=== PATIENT | female | born 1940 | race Caucasian/White ===

== ENCOUNTER 2021-04-18 21:19 | Inpatient (IN) | payer MEDICARE, BC ==
[~2021-04-18] VITALS: Ht 180.3 cm; Wt 137.5 kg
[2021-04-18] MEDS ORDERED: HCTZ 25MG TAB25 MG PO (21:39)
[2021-04-18] MEDS ORDERED: TOPROL XL 50MG50 MG PO (21:39)
[2021-04-18] MEDS ORDERED: SYNTHROID0.175 MG PO (21:39)
[2021-04-19 01:15] VITALS: BP 106/60; PULSE 51; TEMP 98.2
--- NOTE | 2021-04-19 01:45 | NUR ---
Vancomycin Initial Dosing Pharmacy Note Ordering provider: Roshan Lerma MD 80 YO F Indication/duration: BILATERAL LE CELLULITIS Trough goal: 10-20 HX: NONE IDENTIFIED BMI: 41.8 WT: 136 KG ADJBW: 97 KG OSH SCR: 0.85 ADJBW ESTCRCL ~ 78 ML/MIN T 1/2 ~ 10H OSH LABS TEMP: 97.4 WBC: 7.3 LA: 2.64 CRP: 1.4 OSH IMAGING XRAY OF LE REPORTING W/OUT OSSEUS INJURY PER RN PT HAD RECEIVED A OSH LOADING DOSE OF 2.5 GM X1 (~18 MG/KG) ON 04/18 @~1999. WILL START A MAINTENANCE DOSE OF 1.25 GM Q12H TO ACEIVE DESIRED GOAL TROUGH. WILL FOLLOW CLOSELY PT IS AT RISK FOR ACCUMULATION AND NOT FOLLOWING POPULATION BASED KINETICS 2/2 ELVEATED BMI. WILL FOLLOW RENAL FUNCTION, MICRO, AND PLAN OF CARE FOR NEED TO ADJUST THERAPY. THANK YOU FOR THIS DOSING CONSULT!
[2021-04-19 02:17] LABS: ALBUMIN 3.1 gm/dL (3.5-5.0); BILIRUBIN,TOTAL 2.9 mg/dL (0.0-1.0); CALCIUM 8.8 mg/dL (8.4-10.2); CREATININE, serum 0.74 (0.52-1.25); MAGNESIUM 1.8 mg/dL (1.6-2.3); POTASSIUM 3.6 mmol/L (3.4-5.0); TOTAL PROTEIN 6.4 gm/dL (6.4-8.2)
[2021-04-19 02:29] LABS: BASO # 0.1 (0.0-0.2); BASO % 0.8 % (0.0-2.0); EOS # 0.1 (0.0-0.7); EOS % 1.1 % (0-4.0); GRAN # 4.4 (1.4-6.5); GRAN % 69.7 % (42.2-75.2); LYMPH # 0.8 (1.2-3.4); LYMPH % 13.5 % (20.0-51.0); MEAN CELL VOLUME 100 fl (80.0-100.0); MEAN CORPUSCULAR HEMOGLOBIN 33 pg (27.0-31.0); MEAN CORPUSCULAR HGB CONC 33 g/dl (33.0-37.0); MEAN PLATELET VOLUME 11.2 fl (7.4-10.4); MONO # 0.9 (0.1-0.6); MONO % 14.6 % (1.7-9.3); PLATELET COUNT 138 K/mm3 (130-400); RED BLOOD COUNT 3.99 M/mm3 (4.10-5.30)
[2021-04-19 03:26] VITALS: BP 101/61; PULSE 97; TEMP 98.5
--- NOTE | 2021-04-19 03:33 | NUR ---
Patient arrived to medical floor room 358 via EMS from [facility] ER around 00:30 am. Patient A/Ox3. Patient's bilateral lower extremities has +4 pitting edemas. Able to confirm pedal pulses with doppler ultrasound. Anterior side of left lower leg has an open wound. Bilateral lower legs oozing. Under breast and pannus area have excoriations. Lung sounds coarse. Patient denies chest pain or SOB. IV magnesium given per NOV. Black catheter inserted for accurate I&O. Patient tolerated procedure well. Lasix given per NOV. Oriented patient to the room. Call light within reach. Bed-alarms on. Fall precaution maintained.
[2021-04-19 04:02] LABS: MUCOUS Present /lpf; PH 5 (5-8); URINE APPEARANCE Hazy; URINE BACTERIA None Seen /hpf; URINE BILIRUBIN Positive (NEGATIVE); URINE BLOOD 2+ (NEGATIVE); URINE COLOR Amber; URINE GLUCOSE Negative (NEGATIVE); URINE KETONE Negative (NEGATIVE); URINE LEUKOCYTE ESTERASE Negative (NEGATIVE); URINE NITRATE Negative (NEGATIVE); URINE PROTEIN(semi-quant) 2+ (NEGATIVE); URINE RBC >50 /hpf; URINE UROBILINOGEN >=4.0 mg/dL (NEGATIVE)
[2021-04-19 04:34] LABS: COLLECTION METHOD CLEAN CATCH
[2021-04-19 08:22] VITALS: BP 107/53; PULSE 74; TEMP 98.1
[2021-04-19 11:03] LABS: CALCIUM 8.7 mg/dL (8.4-10.2); CREATININE, serum 0.8 (0.52-1.25); POTASSIUM 3.6 mmol/L (3.4-5.0)
[2021-04-19 12:17] VITALS: BP 94/64; PULSE 79; TEMP 98.3
--- NOTE | 2021-04-19 14:32 | NUR ---
SW met with patient to complete intake. Patient states that she lives alone. Daughter is near by and assists Mirella. Patient provides that she utilizes a walker and a WC, and is independent with ADL's. Patient states that her PCP is Dr. Ledbetter, pharmacy is [facility]. Patient was unsure of a DPOA, and states that she plans to go back to her home upon DC. SW will continue to follow. DC Plan: Home/alone
[2021-04-19 17:10] VITALS: BP 96/61; PULSE 73; TEMP 97.8
--- NOTE | 2021-04-19 17:52 | NUR ---
PT HAD UNEVETFUL DAY,PT REMAINS A/OX4, SOFT BP'S RECORDED. PT BILAT LEG DRESSINGS CHANGED THIS SHIFT. PT DENIES PAIN,N,V,D. PT EXPRESSES NO ADDITIONAL NEEDS AT THIS TIME. CALL LIGHT WITHIN REACH.
[2021-04-19 19:43] VITALS: BP 125/56; PULSE 87; TEMP 98.4
--- NOTE | 2021-04-19 23:14 | NUR ---
Shift assessment completed. Patient alert and oriented. Patient sitting up in bed. Patient denies pain to her lower legs while at rest. Denies SOB or dyspnea at this time. BLE cellulitis site compression dressing in place. Bilateral lower legs remains elevated on the pillow. Black catheter in place and draining leandra hazy urine with some sediments observed. All scheduled meds given per NOV. Call light within reach. Will continue to monitor.
[2021-04-20 00:22] VITALS: BP 113/57; PULSE 92; TEMP 98.1
[2021-04-20 04:05] VITALS: BP 110/56; PULSE 88; TEMP 97.2
--- NOTE | 2021-04-20 05:26 | NUR ---
Patient reports catheter leaking around midnight. Bladder irrigation done total care provided. Assisted patient to use bed-side commode. Patient had BM x1. Patient very weak, 2 person assit needed for transfer to bed-side commode.
[2021-04-20 07:40] LABS: BASO # 0.1 (0.0-0.2); BASO % 0.8 % (0.0-2.0); EOS # 0.2 (0.0-0.7); EOS % 2.4 % (0-4.0); GRAN # 4.9 (1.4-6.5); GRAN % 68.6 % (42.2-75.2); HEMATOCRIT 37.2 % (37.0-47.0); HEMOGLOBIN 12.2 g/dl (12.5-16.0); LYMPH # 0.9 (1.2-3.4); LYMPH % 12.7 % (20.0-51.0); MEAN CELL VOLUME 100 fl (80.0-100.0); MEAN CORPUSCULAR HEMOGLOBIN 33 pg (27.0-31.0); MEAN CORPUSCULAR HGB CONC 33 g/dl (33.0-37.0); MEAN PLATELET VOLUME 11.4 fl (7.4-10.4); MONO # 1.1 (0.1-0.6); MONO % 15.1 % (1.7-9.3); PLATELET COUNT 138 K/mm3 (130-400); RED BLOOD COUNT 3.73 M/mm3 (4.10-5.30); REDCELL DISTRIBUTION WIDTH-CV 17.2 % (11.5-14.5)
[2021-04-20 07:50] LABS: CALCIUM 8.9 mg/dL (8.4-10.2); CREATININE, serum 0.91 (0.52-1.25); POTASSIUM 3.8 mmol/L (3.4-5.0)
[2021-04-20 08:45] VITALS: BP 108/68; PULSE 100
--- NOTE | 2021-04-20 09:01 | NUR ---
Shift assessment complete. Pt lying in bed sleeping upon entry, rouses easily to voice. A&Ox4. Heart rhythm irregular and tachy in 110s. Lungs w/coarse crackles over all brady. Pt reports SOA w/deep breaths and movement. Denies chest pain or dizziness. BLE w/3-4+ edema and redness. Areas of weeping to bilateral shins. Black in place, no leaking this morning. Urine output minimal, leandra and contains sediment. Pt denies needs at this time. Continuing to monitor.
--- NOTE | 2021-04-20 10:12 | NUR ---
Attempted to collect UA off Black, unable to collect any urine at this time. Will try again later.
[2021-04-20 11:25] VITALS: BP 93/62; PULSE 97; TEMP 97.5
--- NOTE | 2021-04-20 12:06 | NUR ---
No urine after over an hour of Black being clamped. Hospitalist notified and verbal orders given to irrigate Black and bladder scan if unsuccessful. Irrigated Black w/20 ccs sterile water. Winn urine w/small clots began flowing. Approximately 100 ccs urine output at this time. UA collected and sent to lab.
[2021-04-20 12:33] LABS: MUCOUS Present /lpf; PH 5 (5-8); SQUAMOUS EPITHELIAL 0-2 /hpf; URINE APPEARANCE Hazy; URINE BACTERIA Rare /hpf; URINE BILIRUBIN Negative (NEGATIVE); URINE BLOOD 3+ (NEGATIVE); URINE COLOR Yellow; URINE GLUCOSE Negative (NEGATIVE); URINE KETONE Negative (NEGATIVE); URINE LEUKOCYTE ESTERASE 1+ (NEGATIVE); URINE NITRATE Negative (NEGATIVE); URINE PROTEIN(semi-quant) 1+ (NEGATIVE); URINE RBC >50 /hpf; URINE UROBILINOGEN Negative (NEGATIVE)
[2021-04-20 13:13] LABS: COLLECTION METHOD CLEAN CATCH
--- NOTE | 2021-04-20 15:27 | NUR ---
Wraps to bilateral legs soaked from weeping sores. Legs redressed w/ABDs, gauze fluff roll, and TESFAYE wrap. Elevated on a pillow. Black catheter continues to have minimal red hazy output.
[2021-04-20 16:00] VITALS: BP 109/61; PULSE 91; TEMP 97.9
--- NOTE | 2021-04-20 17:22 | NUR ---
Pt has slept for much of shift. Did get up to recliner for a few hours this morning w/help from PT. Resting in bed at this time w/o complaint. 275 ccs hazy red urine output from Black this shift.
[2021-04-20 20:22] VITALS: BP 90/61; PULSE 91; TEMP 98.1
--- NOTE | 2021-04-20 22:50 | NUR ---
ALERT AND OX3. SETTING IN BED WATCHING TV. DENIES PAIN, SOA OR DIZZY. CELLULITIS FROM HIPS TO ANKLES, REDENED AND WEAPING. SHAYNA PAD AND COVERED WITH ABD AND GAUZE ELEVATED ON PILLOW. RANGEL CATH DD YELLOW W SOME HEMATURIA IN BAG. CHRONIC AFIB- DENIES CHEST PAIN OR PALPATIONS. CALL LIGHT WI REACH. PM MEDS GIVEN.
[2021-04-21] VITALS (7 sets, daily range): BP systolic 101–135; BP diastolic 51–87; PULSE 60–101; TEMP 97.4–98.3
--- NOTE | 2021-04-21 05:45 | NUR ---
RESTED THOUGH THE NIGHT WITHOUT INCIDENT. NEEDS MET. URINE OUTPT BORDERLINE LOW AND BLOODY.
--- NOTE | 2021-04-21 06:34 | NUR ---
PT RUNNING AFIB W RVR, CALLED BY TELE THOUGHT VU TO BE VTACH- PT SETTING UP IN BED SAYING SHE MAY HAVE TO GO TO THE BATHROOM. REMINDED HAD CLAIRE IN. CALLED SUPER[employer] BACK AFTER LOOKING AT STRIP APPEARS TO BE AFIB RVR. NOTED AND MONITORING.
[2021-04-21 07:04] LABS: BASO % 0.6 % (0.0-2.0); EOS # 0.2 (0.0-0.7); EOS % 2.8 % (0-4.0); GRAN # 4.4 (1.4-6.5); GRAN % 65.6 % (42.2-75.2); HEMATOCRIT 39.1 % (37.0-47.0); HEMOGLOBIN 12.9 g/dl (12.5-16.0); LYMPH # 1.2 (1.2-3.4); MEAN CELL VOLUME 100 fl (80.0-100.0); MEAN CORPUSCULAR HEMOGLOBIN 33 pg (27.0-31.0); MEAN CORPUSCULAR HGB CONC 33 g/dl (33.0-37.0); MEAN PLATELET VOLUME 11.5 fl (7.4-10.4); MONO # 0.9 (0.1-0.6); MONO % 12.6 % (1.7-9.3); PLATELET COUNT 135 K/mm3 (130-400); REDCELL DISTRIBUTION WIDTH-CV 17.2 % (11.5-14.5)
--- NOTE | 2021-04-21 07:17 | NUR ---
PT LAYING IN BED, STATES THAT SHE NEEDS TO USE THE BEDSIDE COMMODE. SHE IS A TWO ASSIST. NO OTHER CONCERNS.
[2021-04-21 07:18] LABS: CALCIUM 9.1 mg/dL (8.4-10.2); CREATININE, serum 1.05 (0.52-1.25); POTASSIUM 3.9 mmol/L (3.4-5.0)
[2021-04-21 07:25] LABS: INR 1.4 (0.8-3.0); PROTHROMBIN TIME 15.3 SECONDS (9.7-12.8)
--- NOTE | 2021-04-21 10:37 | NUR ---
Initial visit; Patient thanked News Cameraman for looking in on her, visiting and offering prayer and God's blessings.
--- NOTE | 2021-04-21 15:31 | NUR ---
SW met with the patient to introduce oneself and to review d/c plan. The patient confirms that she lives alone in [place]. She reports that her daughter, Mirella (ph#[phone]), and granddaughter also live in [place]. PT is recommending home with family assist. The patient plans to return home upon discharge. SW discussed home health services and it's benefits. The patient states that she would need to think about this. RIGOBERTO then contacted the patient's daughter, Mirella, to review the above. Mirella reports that she does have concerns about the patient returning home with no services. She states that the patient is a fall risk and will not bathe or do what she needs to at home. Mirella states that she may be looking in [place] in the future for the patient. SW to update the clinical team and will address home health again.
[2021-04-22 04:28] VITALS: BP 94/56; PULSE 91; TEMP 97.5
[2021-04-22 07:52] LABS: HEMOGLOBIN 12.2 g/dl (12.5-16.0); MEAN CELL VOLUME 102 fl (80.0-100.0); MEAN CORPUSCULAR HEMOGLOBIN 33 pg (27.0-31.0); MEAN CORPUSCULAR HGB CONC 32 g/dl (33.0-37.0); MEAN PLATELET VOLUME 11.3 fl (7.4-10.4); PLATELET COUNT 125 K/mm3 (130-400); RED BLOOD COUNT 3.71 M/mm3 (4.10-5.30); REDCELL DISTRIBUTION WIDTH-CV 17.2 % (11.5-14.5)
[2021-04-22 08:00] LABS: CALCIUM 8.8 mg/dL (8.4-10.2); CREATININE, serum 1.14 (0.52-1.25); MAGNESIUM 1.8 mg/dL (1.6-2.3); POTASSIUM 3.6 mmol/L (3.4-5.0)
[2021-04-22 08:17] VITALS: BP 98/60; PULSE 80; TEMP 98
--- NOTE | 2021-04-22 09:38 | NUR ---
Follow-up visit; Patient thanked Dorr Operator for looking in on her and offering a cheerful "Hello, and God's blessings."
[2021-04-22 11:36] VITALS: BP 100/58; PULSE 85; TEMP 97.7
--- NOTE | 2021-04-22 14:48 | NUR ---
OT notified RIGOBERTO of some concerns about the patient returning home. SW met with the patient to review d/c plan and discussed SNF. The patient reports that she would be interested in SNF and would probably be interested in the facility she had been to in the past. SW contacted the patient's daughter, Mirella, and updated her on the above. Mirella is supportive of the patient's decision. She reports that the patient was at [facility] in [place] in the past and they would prefer them again. She did not have a second preference at this time. Mirella reports that if [facility] is unable to trasport, that she would be able to transport the patient. SW attempted to contact [facility]. The call rolled over to one of their sister facilities. The hospital receptionist reports that [facility]'s phones are down right now. She states she will get in touch with someone at [facility] and have them contact . The hospital receptionist did not have [facility]'s fax number. Awaiting call from [facility] to be able to send referral. RIGOBERTO updated the PA of the plan.
--- NOTE | 2021-04-22 15:17 | NUR ---
Floresita, from [facility], returned RIGOBERTO's phone call. She states that their phones are down, but that RIGOBERTO can email her the referral: [email or web address]. RIGOBERTO emailed Floresita the referral. Awaiting screen. Floresita: [phone]
[2021-04-22 15:39] VITALS: BP 95/54; PULSE 78; TEMP 97.7
--- NOTE | 2021-04-22 16:00 | NUR ---
A palliative care consult was ordered. Benita met with the patient. Benita reports that the patient is not interested in hospice. The patient was interested in completing a DPOA-HC. RIGOBERTO met with the patient and provided her with a form. The patient designated her aunt, Marianna Baig (ph#[phone]), and her brother, Narinder Britt (ph#[phone]), as the alternate. RIGOBERTO and SAL Joy, witnessed the patient's signature. RIGOBERTO provided the patient with the original and some copies. RIGOBERTO placed a copy in the patient's chart.
[2021-04-22 19:43] VITALS: BP 93/53; PULSE 85; TEMP 97.3
--- NOTE | 2021-04-22 21:46 | NUR ---
ALERT AND OX3. SLEEPING UPON ENTERING ROOM. BILATERAL LEGS WRAPPED APPEAR TO BE LESS WEAPY TODAY. PITTING EDEMA REMAINS 4+. LASIX AND ANTIBOTICS GIVEN PER MAR. DENIES PAIN, SOA. LUNGS SLIGHT CRACKLES. POC DISCUSSED. LIGHT DOWN CALL LIGHT WI REACH. NEEDS MET.
[2021-04-22 23:57] VITALS: BP 99/60; PULSE 89; TEMP 97.5
[2021-04-23 04:44] VITALS: BP 90/45; PULSE 93; TEMP 97.5
--- NOTE | 2021-04-23 04:58 | NUR ---
RESTED THROUGH THE NIGHT WITHOUT INCIDENT. NEEDS MET.
[2021-04-23 06:50] LABS: HEMATOCRIT 37.3 % (37.0-47.0); MEAN CELL VOLUME 101 fl (80.0-100.0); MEAN CORPUSCULAR HEMOGLOBIN 33 pg (27.0-31.0); MEAN CORPUSCULAR HGB CONC 32 g/dl (33.0-37.0); MEAN PLATELET VOLUME 11.3 fl (7.4-10.4); PLATELET COUNT 126 K/mm3 (130-400); RED BLOOD COUNT 3.69 M/mm3 (4.10-5.30); REDCELL DISTRIBUTION WIDTH-CV 17.1 % (11.5-14.5)
[2021-04-23 06:58] LABS: CALCIUM 8.7 mg/dL (8.4-10.2); CREATININE, serum 1.2 (0.52-1.25); POTASSIUM 3.8 mmol/L (3.4-5.0)
[2021-04-23 07:32] VITALS: BP 97/51; PULSE 84; TEMP 97.7
--- NOTE | 2021-04-23 08:19 | NUR ---
Scheduled medications given. Shift assessment preformed. Lasix and Toprol held for SBP<100. BLE cellulitis with weeping noted. Patient continues to be in A-flutter. Expiratory wheezes noted in all lung field. Patient denies any pain, discomfort, SOA at rest, or further needs at this time. Balck in place. Yellow urine with sediment noted. Call light in reach. Fall precautions in place.
--- NOTE | 2021-04-23 10:16 | NUR ---
Honey, at [facility], reports that they have declined the patient. They do not feel like they can meet the patient's needs. RIGOBERTO contacted and updated the patient's daughter, Mirella. RIGOBERTO discussed SNF vs home health. Mirella reports that she feels like the patient needs something more than home health and would still like to pursue SNF. RIGOBERTO informed her of the other facilities around [place]. Mirella would like to talk to her first, but she states that they are familiar with the facilites in [place] and would be open for SW to send referrals there. She plans on contacting SW back this afternoon with other preferences. RIGOBERTO attempted to contact Grisel at [facility]. RIGOBERTO left her a voicemail and faxed over the referral. RIGOBERTO contacted and emailed a referral to at [facility]. Awaiting screens.
[2021-04-23 11:53] VITALS: BP 102/61; PULSE 80; TEMP 97.6
--- NOTE | 2021-04-23 12:46 | NUR ---
Follow-up visit; Patient thanked for her continued visits and well wishes. will continue visits while [place] is a patient here.
[2021-04-23 15:46] VITALS: BP 85/46; PULSE 78; TEMP 97.8
--- NOTE | 2021-04-23 16:48 | NUR ---
Grisel, at [facility], contacted with some additional questions on the patient. Grisel reports that she will reach out to the patient's daughter and be in contact with . Grisel at [facility]: cell #[phone] work#[phone] ext [phone]
--- NOTE | 2021-04-23 19:16 | NUR ---
Patient had an ok day. BP's continue to be soft. Provider notified, rudolph put on a future hold. Patient had 400 ml of output from her de la cruz. Urine tea colored, sediment noted. Bladder scan conducted and 248 ml of residual urine noted. No kinks noted in de la cruz. Patient denies the presence of pain or discomfort. Information passed to oncoming shift. Patient denies any further pain at this time. Call light in reach. Fall precautions in place.
[2021-04-23 20:37] VITALS: BP 100/58; PULSE 85; TEMP 97.5
[2021-04-24 00:05] VITALS: BP 93/57; PULSE 82; TEMP 97.5
--- NOTE | 2021-04-24 04:53 | NUR ---
PT HAD UNEVENTFUL NIGHT, THIS NURSE CHANGED THE PT'S DRESSING AND HELPED CLEAN UP THE PT. PT DENIES PAIN,N,V,D. PT EXPRESSES NO ADDITIONAL NEEDS AT THIS TIME. CALL WITHIN REACH.
[2021-04-24 05:00] VITALS: BP 100/63; PULSE 85; TEMP 97.5
[2021-04-24 07:27] VITALS: BP 110/59; PULSE 89; TEMP 97.6
--- NOTE | 2021-04-24 08:08 | NUR ---
Scheduled medication given. Shift assessment preformed. Patient resting in bed at this time. Patient A&O. VSS. Expiratory wheezes noted in all brady. Patient denies being SOA. BLE cellulitis and +3 edema noted. Black catheter in place. Securment device in use. Urine tea colored with sediment. Patient denies any pain, discomfort, or further needs at this time. Call light in reach. Fall precautions in place.
[2021-04-24 11:31] VITALS: BP 97/54; PULSE 85; TEMP 97.8
[2021-04-24 11:46] LABS: CALCIUM 8.9 mg/dL (8.4-10.2); CREATININE, serum 1.16 (0.52-1.25)
--- NOTE | 2021-04-24 14:50 | NUR ---
Grisel with [facility] states they can accept patient, however, daughter will need to transport.
[2021-04-24 16:00] VITALS: BP 100/62; PULSE 89; TEMP 97.5
--- NOTE | 2021-04-24 19:26 | NUR ---
Patient had an uneventful day. Urine output continues to be low. Bladder scanned, 238 ml residual noted. Fluids encouraged. Urine tea colored with sedement. VSS. Patient denies any pain, discomfort, or further needs at this time. Call light in reach. A&O.
[2021-04-24 21:04] VITALS: BP 96/55; PULSE 87; TEMP 97.5
[2021-04-25 00:30] VITALS: BP 100/50; PULSE 85; TEMP 97.8
[2021-04-25 04:09] VITALS: BP 95/58; PULSE 75; TEMP 97.4
--- NOTE | 2021-04-25 04:14 | NUR ---
PT READJUSTED IN BED, SPO2 SATURATION MONITORED, 92%. TRANSIENT DESATURATIONS NOTED TO 89%, QUICKLY JUMP BACK UP TO 92-93%. WILL CONTINUE TO MONITOR.
--- NOTE | 2021-04-25 04:16 | NUR ---
PT READJUSTED, STAGE TWO PRESSURE ULCER FOUND ON COCCYX, CLEANED AND DRESSED WITH MEPELEX PAD. PT EXCORIATION ON GROIN AND UNDER LEFT BREAST CLEANED, DEMEDEX POWDER APPLIED AT THIS TIME.
--- NOTE | 2021-04-25 06:06 | NUR ---
PT CONTINUING ON PLAN OF CARE. PT DENIED PAIN DURING SHIFT. PT EXCORIATION MANAGED WITH DEMEDEX, CLEANED AND DRIED. PT ABLE TO CONVERSE FREELY AND EXPRESS NEEDS. THIS RN FOUND STAGE 2 PRESSURE ULCER OVER COCCYX. AREA CLEANED, DRIED, WITH MEPELEX PAD PLACED TO RELIEVE PRESSURE.
--- NOTE | 2021-04-25 07:03 | NUR ---
PATIENT LYING IN BED AWAKE AT THIS TIME. DENIES ANY PAIN, DISCOMFORT, OR FURTHER NEEDS AT THIS TIME. CALL LIGHT IN REACH. FALL PRECAUTIONS IN PLACE.
[2021-04-25 07:09] LABS: BASO # 0.1 (0.0-0.2); EOS # 0.2 (0.0-0.7); EOS % 3.8 % (0-4.0); GRAN # 3.8 (1.4-6.5); GRAN % 63.3 % (42.2-75.2); HEMATOCRIT 37.7 % (37.0-47.0); HEMOGLOBIN 12.2 g/dl (12.5-16.0); LYMPH # 1.1 (1.2-3.4); LYMPH % 17.5 % (20.0-51.0); MEAN CELL VOLUME 101 fl (80.0-100.0); MEAN CORPUSCULAR HEMOGLOBIN 33 pg (27.0-31.0); MEAN CORPUSCULAR HGB CONC 32 g/dl (33.0-37.0); MEAN PLATELET VOLUME 11.5 fl (7.4-10.4); MONO # 0.8 (0.1-0.6); MONO % 13.9 % (1.7-9.3); PLATELET COUNT 115 K/mm3 (130-400); RED BLOOD COUNT 3.74 M/mm3 (4.10-5.30); REDCELL DISTRIBUTION WIDTH-CV 17.4 % (11.5-14.5)
[2021-04-25 07:16] LABS: CALCIUM 8.7 mg/dL (8.4-10.2); CREATININE, serum 1.2 (0.52-1.25); POTASSIUM 3.8 mmol/L (3.4-5.0)
[2021-04-25 07:49] VITALS: BP 115/60; PULSE 89; TEMP 97.5
--- NOTE | 2021-04-25 09:03 | NUR ---
SCHEDULED MEDICATIONS GIVEN. SHIFT ASSESSMENT PREFORMED. PATIENT A&O. VSS. PATIENT HAS DEVELOPED A STAGE 2 ULCER ON SACRAL REGION. Q2 TURNING SCHEDULE IN PLACE. BLE CELLULITIS NOTED. REDNESS IN GROIN AND UNDER RIGHT BREAST. DESENEX ORDERED. EXP. WHEEZES NOTED IN ALL LUNG PLATT. PATIENT DENIES ANY PAIN, DISCOMFORT, OR FURTHER NEEDS AT THIS TIME. CALL LIGHT IN REACH. FALL PRECAUTIONS IN PLACE.
--- NOTE | 2021-04-25 09:22 | NUR ---
insulation worker attended clinical rounds. Patient will not discharge today. Patient has been accepted to [facility] for skilled care and daughterMirella, will transport upon discharge. Mirella resides in [place], [place] so an early discharge is preferred. Worker contacted daughter, Mirella and Grisel with skilled facility and advised of the above information. Will evaluate for discharge on Wednesday. *Skilled care at [facility] in [place], [place]* Daughter to transport
[2021-04-25 11:04] VITALS: BP 105/52; PULSE 79; TEMP 97.6
--- NOTE | 2021-04-25 14:54 | NUR ---
PT CAME AND SPOKE WITH THE RN ABOUT CONCERNS OVER PATIENT BEING LETHARGIC THIS SHIFT. THIS RN ASSESSED PATIENT. PATIENT IS EASILY AROUSED AND VOICED THAT SHE "JUST WANTS TO GET SOME REST." PATIENT CONTINUES TO HAVE VERY LOW OUTPUT. BLADDER SCAN DONE, 200 ML OF RESIDUAL URINE NOTED. PATIENT DENIES ANY PAIN, DISCOMFORT, IS AFEBRILE, HAS NO N/V/D. PATIENT REPOSITIONED ON TO LEFT SIDE. CALL LIGHT IN REACH. FALL PRECAUTIONS IN PLACE.
[2021-04-25 15:20] VITALS: BP 105/61; PULSE 89; TEMP 97.4
--- NOTE | 2021-04-25 15:32 | NUR ---
DR. SPARKS NOTIFIED OF PATIENT'S LOW OUTPUT. WILL MONITIOR OUTPUT AND CONTINUE TO REPORT.
--- NOTE | 2021-04-25 16:51 | NUR ---
PATIENT HAS HAD AN OK DAY. HAS NOT C/O ANY PAIN, DISCOMFORT, OR FURTHER NEEDS AT THIS TIME. VSS. RANGEL CATHETER IN PLACE. SECUREMENT DEVICE IN PLACE, NO KINKS IN TUBING. CALL LIGHT IN REACH. FALL PRECAUTIONS IN PLACE.
--- NOTE | 2021-04-25 22:13 | NUR ---
PATIENT IS RESTING IN BED.DENIES PAIN.PATIENT HAS A RANGEL CATHETER WITH DIMINISHED URINE.STARTED AN IV ACCESS ON THE RF.ASSESSMENT DONE.NO OTHER NEEDS A THIS TIME.
[2021-04-25 23:44] VITALS: BP 100/64; PULSE 83; TEMP 98
[2021-04-26 04:29] VITALS: BP 103/57; PULSE 86; TEMP 97.3
--- NOTE | 2021-04-26 05:45 | NUR ---
PATIENT HAD A GOOD NIGHT.DENIES PAIN.SAFETY MEASURES IN PLACE,PATIENT HAD A URINE OUTPUT AFTER LASIX INJ.NO OTHER NEEDS AT THIS TIME.
--- NOTE | 2021-04-26 07:00 | NUR ---
Report received from SAL Cota. Pt in bed resting, will continue to monitor.
--- NOTE | 2021-04-26 09:00 | NUR ---
Assessment charted. PT doing well, BLE Cellulitis with draiange, edema is allfrom feet to ABD at aleast a +3 edema. INT to LFA. Denies pain. Sacral stage 2 covered with mepilex. de la cruz drainig leandra sedimenty urine to DD in bag at side of bed. Will continue to montior.
[2021-04-26 09:19] VITALS: BP 106/55; PULSE 90; TEMP 97.5
[2021-04-26 10:05] LABS: HEMOGLOBIN 12.4 g/dl (12.5-16.0); MEAN CELL VOLUME 100 fl (80.0-100.0); MEAN CORPUSCULAR HEMOGLOBIN 33 pg (27.0-31.0); MEAN CORPUSCULAR HGB CONC 33 g/dl (33.0-37.0); MEAN PLATELET VOLUME 11.4 fl (7.4-10.4); PLATELET COUNT 116 K/mm3 (130-400); RED BLOOD COUNT 3.79 M/mm3 (4.10-5.30); REDCELL DISTRIBUTION WIDTH-CV 17.4 % (11.5-14.5)
[2021-04-26 10:13] LABS: CALCIUM 8.9 mg/dL (8.4-10.2); CREATININE, serum 1.13 (0.52-1.25); MAGNESIUM 1.8 mg/dL (1.6-2.3); POTASSIUM 4.1 mmol/L (3.4-5.0)
[2021-04-26 12:00] VITALS: BP 102/58; PULSE 85; TEMP 97.7
[2021-04-26 15:50] VITALS: BP 105/57; PULSE 87; TEMP 97.5
--- NOTE | 2021-04-26 19:06 | NUR ---
Pt has done well over shift. REsting in bed, turned q2hr over shift. Pt denies needs, report given to nightshift nurse who will resume care.
[2021-04-26 20:20] VITALS: BP 110/59; PULSE 59; TEMP 98.5
--- NOTE | 2021-04-26 20:57 | NUR ---
Assessment completed, alert and oriented. VS are stable including her BP which is always in the soft side. Denies pain os SOB. She sounds wheezy all over which is pretty much her baseline. She is at room air. She is swollen from her belly down to her foot. Bilateral lower legs is elevated in pillows both are wrapped with brian and chucks under. patient skin is dry and scaly in lower legs and weeping. Upper arms are dry as well. Black catheter is in placed and not draining that much despite the lasix that she is geting. No further complains noted. Bed alarm is on and call light is within reach. Will continue to follow.
[2021-04-26 23:47] VITALS: BP 104/57; PULSE 63; TEMP 97.8
[2021-04-27 03:58] VITALS: BP 109/52; PULSE 66; TEMP 98.3
--- NOTE | 2021-04-27 07:00 | NUR ---
Report received from SAL Jaimes. Pt in bed resting, denies needs, will continue to monitor.
[2021-04-27 08:56] LABS: CALCIUM 8.6 mg/dL (8.4-10.2); CREATININE, serum 1.31 (0.52-1.25); POTASSIUM 3.8 mmol/L (3.4-5.0)
[2021-04-27 09:02] VITALS: BP 92/54; PULSE 78; TEMP 97.7
--- NOTE | 2021-04-27 10:40 | NUR ---
Assessment charted. PT denies pain, abd legs and feet remain very edemetous. INT to RH. Turning q2hr for comfort. will continue to monitor.
[2021-04-27 11:32] VITALS: BP 100/58; PULSE 72; TEMP 97.8
--- NOTE | 2021-04-27 14:23 | NUR ---
Bed bath provided and catheter care. PT initially resistant, stated she jsut wanted to rest but did consent. Pt able to assist to assist with rolling but did not verbalize that she is very wet and leaking from her skin around her right abd and right thigh. Changed linens and gown, pt extremely winded from simple act of rolling in bed and did have labored breathing for some time. Called LARRY Miranda with hospitalist group and notified of pt status, she will place orders. Will continue to monitor.
[2021-04-27 16:37] VITALS: BP 95/59; PULSE 87; TEMP 97.4
--- NOTE | 2021-04-27 18:32 | NUR ---
Pt has done well over shift but htis evening was requiring 2LNC to maintain 02 saturations. Called hopsitalist and orders received, called critical d.dimer. Will give bedside shift report to nightshift nruse who will resume care.
[2021-04-27 20:27] VITALS: BP 90/51; PULSE 80; TEMP 98
--- NOTE | 2021-04-27 22:32 | NUR ---
Patient went down for CT of the chest at the start of the shift. She is alert and oriented.Patient used 2L now which is new for her. She still have generalized edema, bilateral legs is wrapped and weeping. She denies pain or SOB and she doesn't call or complain of anything. Black is in placed. VS are stable except for the BP which is low. Tele is in placed where she runs irregular.New IV site inserted from dayshift RN in right hand saline locked. Continue repositioning Q2hrs fro patient comfort. Bedalarm is on and call light within reach will continue to follow.
[2021-04-27 23:36] VITALS: BP 91/60; PULSE 75; TEMP 97.7
[2021-04-28] VITALS (334 sets, daily range): BP systolic 93–112; BP diastolic 49–74; PULSE 63–87; TEMP 97–98.1; O2SAT 88–100
--- NOTE | 2021-04-28 07:00 | NUR ---
Report received form SAL Jaimes. Pt in bed resting, denies needs, will continue to monitor.
[2021-04-28 08:11] LABS: BASO # 0.1 (0.0-0.2); EOS # 0.2 (0.0-0.7); GRAN # 3.7 (1.4-6.5); GRAN % 63.3 % (42.2-75.2); HEMATOCRIT 38.2 % (37.0-47.0); MEAN CELL VOLUME 104 fl (80.0-100.0); MEAN CORPUSCULAR HEMOGLOBIN 33 pg (27.0-31.0); MEAN CORPUSCULAR HGB CONC 31 g/dl (33.0-37.0); MEAN PLATELET VOLUME 11.7 fl (7.4-10.4); MONO # 0.8 (0.1-0.6); MONO % 14.4 % (1.7-9.3); PLATELET COUNT 113 K/mm3 (130-400); RED BLOOD COUNT 3.67 M/mm3 (4.10-5.30); REDCELL DISTRIBUTION WIDTH-CV 17.6 % (11.5-14.5)
[2021-04-28 08:20] LABS: CALCIUM 8.5 mg/dL (8.4-10.2); CREATININE, serum 1.34 (0.52-1.25); POTASSIUM 3.9 mmol/L (3.4-5.0)
--- NOTE | 2021-04-28 08:21 | NUR ---
Assessment charted. Pt doing well, states she thinks she is doing better today, sitting up and eating breakfast. Denies pain. 02 sats only 91% on 3.5L NC. Pt continues to have edema all over body. Weeping skin especially R thigh and ABD. INT to LH. Will continue ot monitor.
--- NOTE | 2021-04-28 10:21 | NUR ---
Follow-up visit; Patient thanked Engineer Technical Staff for looking in on her again today and listening, offering comfort and keeping her in Engineer Technical Staff's prayers with blessings.
--- NOTE | 2021-04-28 10:35 | NUR ---
Patient will be transferring to ICU and will not discharge to long term facility in [place] today.
--- NOTE | 2021-04-28 13:23 | NUR ---
Pt transported down via w/c to ICU with medical staff. Per pt there is no one to notify of transfer. Resting in wheelchair and transferred to bed with SBA. ICU nurse Ginny given report, she will resume care.
--- NOTE | 2021-04-28 13:50 | NUR ---
RECEIVED BEDSIDE SHIFT REPORT FROM SAL ACEVEDO REGARDING THIS PATIENT AT 1230. PATIENT RECEIVED FROM MEDICAL FLOOR WITH LEFT HAND IV AND RANGEL CATHETER IN PLACE, SALINE LOCKED. PATIENT VERY HARD OF HEARING BUT PLEASANT AND RESPONSIVE TO ASSESSMENT QUESTIONS. WEEPING FROM LEFT UPPER EXTREMITY AND BILATERAL LOWER EXTREMITIES. BLE WRAPPED WITH TESFAYE BANDAGES AND 4+ EDEMA. BUE 3+ AND ABDOMEN 2+ EDEMA. PLACED CHUCKS PAD UNDER LUE. WILL START LASIX GTT AND MONITOR PRESSURES. VITAL SIGNS STABLE AT THIS TIME.
--- NOTE | 2021-04-28 14:23 | NUR ---
Called and update provided to daughter Mirella regarding transfer to ICU.
--- NOTE | 2021-04-28 14:33 | NUR ---
qualified craft worker electrician notified Grisel of [facility] in [place] that patient was transferred to ICU and will not discharge this date. Patient's nurse contacted daughter, Mirella, and advised of the above information. [facility]
--- NOTE | 2021-04-28 14:33 | NUR ---
NOTIFIED DR. HERNANDEZ AND DR. REDMOND OF [facility]. RECOMMENDATION TO PLACE HEPARIN AND ASPIRIN ON HOLD.
--- NOTE | 2021-04-28 14:52 | NUR ---
PLACED ORDER FOR PICC LINE PLACEMENT WITH DR. HERNANDEZ'S PERMISSION.
[2021-04-28] MEDS ORDERED: ASPIRIN 81M81 MG/TA2 PO (18:32)
--- NOTE | 2021-04-28 20:07 | NUR ---
Assessment complete and charted. Denies pain. Denies needs at this time. Call light in reach.
[2021-04-29] VITALS (1149 sets, daily range): BP systolic 92–104; BP diastolic 44–85; PULSE 66–91; TEMP 95.6–97.6; O2SAT 77–100
[2021-04-29 06:26] LABS: BASO # 0.1 (0.0-0.2); EOS # 0.2 (0.0-0.7); EOS % 3.4 % (0-4.0); GRAN # 3.3 (1.4-6.5); HEMATOCRIT 37.9 % (37.0-47.0); LYMPH # 0.9 (1.2-3.4); LYMPH % 16.9 % (20.0-51.0); MEAN CELL VOLUME 103 fl (80.0-100.0); MEAN CORPUSCULAR HEMOGLOBIN 33 pg (27.0-31.0); MEAN CORPUSCULAR HGB CONC 32 g/dl (33.0-37.0); MEAN PLATELET VOLUME 11.5 fl (7.4-10.4); MONO # 0.7 (0.1-0.6); MONO % 13.3 % (1.7-9.3); PLATELET COUNT 107 K/mm3 (130-400); RED BLOOD COUNT 3.67 M/mm3 (4.10-5.30); REDCELL DISTRIBUTION WIDTH-CV 17.7 % (11.5-14.5)
[2021-04-29 06:33] LABS: ALBUMIN 2.7 gm/dL (3.5-5.0); BILIRUBIN,TOTAL 1.3 mg/dL (0.0-1.0); CALCIUM 8.5 mg/dL (8.4-10.2); CREATININE, serum 1.3 (0.52-1.25); MAGNESIUM 1.9 mg/dL (1.6-2.3); POTASSIUM 3.7 mmol/L (3.4-5.0); TOTAL PROTEIN 5.9 gm/dL (6.4-8.2)
--- NOTE | 2021-04-29 09:29 | NUR ---
Follow-up visit; Patient just received her breakfast, wished [place] a good morning and a better day today. will look in on [place] later.
--- NOTE | 2021-04-29 10:58 | NUR ---
Follow-up with [place]; Front Desk Specialist attempted to talk more with Lenore although she was having a more difficult time hearing this morning. Front Desk Specialist offered God's blessings and left her with a nurse.
[2021-04-29 18:31] LABS: CALCIUM 8.9 mg/dL (8.4-10.2); CREATININE, serum 1.32 (0.52-1.25)
--- NOTE | 2021-04-29 19:42 | NUR ---
REPORTED OFF TO SAL MARTIN; PATIENT RESTING COMFORTABLY IN BED
[2021-04-30] VITALS (928 sets, daily range): BP systolic 85–99; BP diastolic 42–59; PULSE 91–102; TEMP 97.8–98.1; O2SAT 83–100
--- NOTE | 2021-04-30 00:25 | NUR ---
2340 PT WENT INTO AFIB RVR 2X. BP MAINTAINED. LASTED APPROX 30 SECONDS. WILL CONTINUE TO MONITOR. PT ASYMPTOMATIC AT THIS TIME.
[2021-04-30 04:50] LABS: BASO % 0.7 % (0.0-2.0); EOS # 0.1 (0.0-0.7); GRAN # 4.3 (1.4-6.5); GRAN % 75.4 % (42.2-75.2); HEMATOCRIT 37.6 % (37.0-47.0); HEMOGLOBIN 11.8 g/dl (12.5-16.0); LYMPH # 0.6 (1.2-3.4); LYMPH % 9.7 % (20.0-51.0); MEAN CELL VOLUME 106 fl (80.0-100.0); MEAN CORPUSCULAR HEMOGLOBIN 33 pg (27.0-31.0); MEAN CORPUSCULAR HGB CONC 31 g/dl (33.0-37.0); MEAN PLATELET VOLUME 11.6 fl (7.4-10.4); MONO # 0.7 (0.1-0.6); MONO % 12.7 % (1.7-9.3); PLATELET COUNT 101 K/mm3 (130-400); RED BLOOD COUNT 3.55 M/mm3 (4.10-5.30); REDCELL DISTRIBUTION WIDTH-CV 17.7 % (11.5-14.5)
[2021-04-30 04:58] LABS: ALBUMIN 2.8 gm/dL (3.5-5.0); BILIRUBIN,TOTAL 1.4 mg/dL (0.0-1.0); CALCIUM 8.8 mg/dL (8.4-10.2); CREATININE, serum 1.29 (0.52-1.25); MAGNESIUM 1.9 mg/dL (1.6-2.3); POTASSIUM 4.1 mmol/L (3.4-5.0); TOTAL PROTEIN 6.1 gm/dL (6.4-8.2)
--- NOTE | 2021-04-30 07:00 | NUR ---
RECEIVED REPORT FROM SAL MARTIN. PT RESTING EASILY ON 1L VIA NC. FC PATENT AND DRAINING TO GRAVITY. RAD TINGED NOTED. WILL MONITOR. VSS. SEE GTT FLOWSHEET. CALL LIGHT WITHIN REACH.
--- NOTE | 2021-04-30 09:00 | NUR ---
DR REDMOND AT BEDSIDE FOR ASSESSMENT. DISCUSSED LOW UO AND URINE COLOR IS RED. PROVIDER STAES CREATINE HAS NOT CHANGED MUCH TO STILL TRY GETTING FLUID OFF, SEE GTT FLOWSHEET FOR LASIX CHANGE. PROVIDER STATES WILL REASSESS TOMORROW MORNING ABOUT POTENTIALLY INCREASING LASIX DOSE AGAIN.
--- NOTE | 2021-04-30 10:00 | NUR ---
SPOKE TO DR REDMOND ABOUT IF PT SHOULD RECEIVE METOPROLO THIS AM D/T SBP IN THE 90-100s. STATES YES FOR AFIB. MADE PROVIDER AWARE PT SPIT OUT THE OTHER PILLS AND WILL TRY AGAIN LATER. PT DOES NOT OPEN EYES BUT ONE TIME WHEN NAMED CALLED AND STATES "IM TIRED," AND CLOSES EYES AND GOES BACK TO SLEEP.
--- NOTE | 2021-04-30 10:15 | NUR ---
SPOKE TO DR BRAY ABOUT PT SPITTING PILLS BACK OUT AND REFUSING OTHER ITEMS OF CARE LAST NIGHT. PT APPEARS TO BE UNINTERESTED IN CARE OR TREATMENT. POTENTIAL NEED FOR GOALS OF CARE WITH FAMILY AND PT D/T LACK OF INTEREST BY PT. NEW ORDERS RECEIVED.
--- NOTE | 2021-04-30 10:53 | NUR ---
PT TURNS HEAD WHEN SPOKEN TO BUT DOES NOT OPEN EYES. WHEN ASKED IF SHE WANTS WATER SHE OPENS HER MOUTH AND USES STRAW APPORPRAITELY. THEN ASKED PT IF SHE CAN TAKE HER PILLS, SHE SHAKES HER HEAD NO AND DOES NOT OPEN HER MOUTH.
--- NOTE | 2021-04-30 13:30 | NUR ---
SPOKE TO DR BRAY ABOUT HER CONVERSATION WITH DR REDMOND AND PT'S DAUGHTER DANNY ABOUT POC AND UPDATES ON PT. PROVIDER STATES DID DISCUSS DECLINE OF PT AND WHAT THE DAUGHTER'S WISHES WERE MOVING FORWARD ON HOW AGGRESSIVE SHE WANTS TO BE BECAUSE PT MAY NEED TRANSFERRED TO A HEART FAILURE FACITLITY. PROVIDER AWARE OF UO ONLY 70ML SINCE SHIFT CHANGE. PTOVIDER REQUESTS THAT DR HELTON BE NOTIFIED AND BMP. PROVIDER STATES PT'S DAUGHTER UNABLE TO COME TILL TOMORROW EVENING AFTER WORK AND THAT WE WILL KEEP GOING FORWARD IS LONG PT IS STABLE. AWAITING NEPHROLOGY FURTHER INSTRUCTIONS AFTER CONSULT CALLED TO DR HELTON.
[2021-04-30 13:40] LABS: AMORPHOUS CRYSTAL Present /uL; PH 5 (5-8); SQUAMOUS EPITHELIAL None Seen /hpf; URINE APPEARANCE Turbid; URINE BACTERIA Moderate /hpf; URINE BILIRUBIN Negative (NEGATIVE); URINE BLOOD 3+ (NEGATIVE); URINE GLUCOSE Negative (NEGATIVE); URINE KETONE Negative (NEGATIVE); URINE LEUKOCYTE ESTERASE Negative (NEGATIVE); URINE NITRATE Negative (NEGATIVE); URINE PROTEIN(semi-quant) 2+ (NEGATIVE); URINE RBC >50 /hpf; URINE UROBILINOGEN Negative (NEGATIVE); URINE WBC >50 /hpf
[2021-04-30 13:41] LABS: URINE COLOR OTHER
[2021-04-30 13:44] LABS: COLLECTION METHOD CATHETER
--- NOTE | 2021-04-30 14:00 | NUR ---
BEAR HUGGER OFF AT THIS TIME. TEMPORAL TEMP 98.1
[2021-04-30 14:42] LABS: CALCIUM 8.9 mg/dL (8.4-10.2); CREATININE, serum 1.44 (0.52-1.25); POTASSIUM 4.3 mmol/L (3.4-5.0)
--- NOTE | 2021-04-30 14:46 | NUR ---
Adelaida Armas [facility] and I talked with daughter, Mirella, by phone today. Mirella will be in this area in the afternoon tomorrow and will meet with the treatment team then. We did discuss that the current meds of milrinone and lasix are not having the effect that we were hoping for--although the lasix could be increased again tomorrow. Mirella states "It sounds like Mom wants to come home" when we described her refusal of oral medications and wanting to sleep over any treatment. We did talk about rehab as an option for her if she were to return home as well as hospice services. Mirella would like for her to go to the local halfway in [place] if possible and Adelaida will check into that. We will follow up on the conversation with family tomorrow.
--- NOTE | 2021-04-30 15:22 | NUR ---
Follow-up visit; Lenore appeared to recognize Vessel Slagman's voice at the beginning of the visit and nodded that she would like something to moisten her lips. requested something from the nurse and meanwhile moistened her lips and forehead with a cool washcloth. prayed the Psalm and hummed a couple hymns and told Bryant she would be back tomorrow though wasn't sure Lenore heard her say goodbye.
--- NOTE | 2021-04-30 15:57 | NUR ---
western tack assembly line worker and Mis, palliative care nurse called Britta and discussed patient's current health status and goals of care. Britta will be at the hospital tomorrow and will meet with us and the patient to discuss goals of care. Worker confirmed that [facility] in [place] does not have any long term care social worker care or skilled beds available. Patient is currently accepted to [facility] in [place].
[2021-04-30 16:58] LABS: ARTERIAL BLD GAS O2 SATURATION 89.7 % (92-100); ARTERIAL BLOOD GAS BASE EXCESS 6.3 (-2-2); ARTERIAL BLOOD GAS HCO3 34.8 meq/L (22-26); ARTERIAL BLOOD GAS pH 7.31 (7.35-7.45)
[2021-04-30 17:00] LABS: ARTERIAL BLOOD GAS PCO2 71.1 mmHg (35-45)
--- NOTE | 2021-04-30 17:00 | NUR ---
DR HELTON AT BEDSIDE FOR ASSESSMENT. AWARE OF LOW UO TODAY. PROVIDER WANTS TO TALK TO DAUGHTER BEFORE MAKING DECISIONS.
--- NOTE | 2021-04-30 17:40 | NUR ---
DR BRAY NOTIFIE DOF ABG. STATES WILL CALL DR JUNIOR AND GET BACK TO [facility]
--- NOTE | 2021-04-30 18:09 | NUR ---
PT PLACED ON BIPAP AT THIS TIME PER DR BRAY AND DR JUNIOR. 19/02 FIO2 30%. ABG IN AN HOUR
[2021-04-30 20:26] LABS: ARTERIAL BLD GAS TCO2 CT 35.7; ARTERIAL BLOOD GAS BASE EXCESS 6.2 (-2-2); ARTERIAL BLOOD GAS HCO3 33.8 meq/L (22-26); ARTERIAL BLOOD GAS PCO2 64.6 mmHg (35-45); ARTERIAL BLOOD GAS PO2 67.9 mmHg (80-100); ARTERIAL BLOOD GAS pH 7.34 (7.35-7.45)
--- NOTE | 2021-04-30 20:47 | NUR ---
ABG and blood pressure results called to Tawny. Tawny here to see pt and joss house keeper attempted to contact the pts daughter regarding plan of care. They were unable to reach her and joss house keeper contacted law enforcement to reach out to daughter to call back. No new orders received.
--- NOTE | 2021-04-30 23:12 | NUR ---
Pts daughter here to visit with Tawny regarding plan of care.
[2021-05-01] VITALS (599 sets, daily range): BP systolic 88–92; BP diastolic 49–52; PULSE 81–108; TEMP 97.1–97.8; O2SAT 79–100
--- NOTE | 2021-05-01 00:11 | NUR ---
Family discussed plan of care with Tawny and they decided to move forward with comfort care.
--- NOTE | 2021-05-01 05:56 | NUR ---
AM Labs cacelled per Tawny. Lab notified.
--- NOTE | 2021-05-01 10:19 | NUR ---
I met with Daughter Mirella and her this morning after they had talked with Adelaida Armas [facility]. The family would like to get her closer to their home town but were agreeable to considering [place]. Facilities were discussed but no decision has yet been made. Support provided. Comfort quilt provided with explanation. I am advised that pt has been made comfort care at this time and is expected to be transferred upstairs later today.
--- NOTE | 2021-05-01 10:42 | NUR ---
Erica made referrals to [facility], [facility] and [facility]. 10:30 AM Erica called [facility] and spoke with Ar and he informed Sw that he has no LTC beds avaliable, but skilled. He could have a LTC bed in couple days. Erica spoke with [facility] and they informed me that they have no bed for LTC but skilled they do. Erica called Arti at [facility], but she did not answer @10:38am. arti called back at 10:48 am and informed Sw that the pt needs to fill out application and the fax did not go through. Arti will email application. Erica to refax over info to arti.
--- NOTE | 2021-05-01 13:30 | NUR ---
Received report from [facility], ICU. Patient is presently on comfort care and daughter, Geovanna, is with her. Patient is hypercapnia and apneic. Patient has a PICC line to RUE. Patient has severe heart failure nad leaky valve. Patient refused to be intubated while of sound mind and DNR. Patient has very little to no urine output. Patient will be here until transportation to a hospice facility in [place].
--- NOTE | 2021-05-01 14:15 | NUR ---
Patient has arrived from ICU to room 331. Patient is accompanied by daughter and son-in-law. Patient continues on comfort care. Will continue to monitor patient throughout shift.
--- NOTE | 2021-05-01 14:41 | NUR ---
Follow-up visit; Patient did not respond possibly due to medication etc. Tax Advisor spoke with her daughter offering support, listening and God's blessings to her, her mom and family.
--- NOTE | 2021-05-01 15:30 | NUR ---
Patient's daughter and son-in-law departed to check into hotel. This nurse told family she would call if anything changed.
--- NOTE | 2021-05-01 16:06 | NUR ---
After working with financial counselors, it is determined that patient does not qualify for medicaid and the payor source for room and board in a facility is private pay. Worker spoke with Mirella, daughter, and advised that there are no beds available. Worker provided information on the [facility] in [place], including room and board prices. Per daughter, [facility]. Worker met with Dr Josue and advised of the above information.
--- NOTE | 2021-05-01 20:00 | NUR ---
PATIENT ASLEEP IN BED. FAMILY AT BEDSIDE. POTENTIALLY TRANSFERRING TO [place] TOMORROW BUT AWAITING INSURANCE. PATIENT IS ON COMFORT CARE. PATIENT'S LAST BP WAS 90/55 AND PATIENT IS SATING 96% ON ROOM AIR. PATIENT HAS RANGEL WITH NO OUTPUT TODAY. PATIENT HAS PICC LINE TO RIGHT UPPER EXTREMITY. NO FURTHER NEEDS AT THIS TIME.
--- NOTE | 2021-05-01 21:30 | NUR ---
PATIENT HAS MEPALEX ON BOTTOM. PATIENT IS UNRESPONSIVE AND SLEEPING. RESPIRATIONS ARE SHALLOW. PATIENT HAS THIRD SPACING ON BILATERAL LOWER EXTREMITIES. PATIENT HAS BLISTERS TO LOWER LEGS. PATIENT WAS SHAVED. NO FURTHER NEEDS AT THIS TIME.
--- NOTE | 2021-05-02 00:04 | NUR ---
UPDATED PATIENT FAMILY OF DECLINE IN VITALS AND RESPIRATIONS. THEY OPTED TO NOT COME TO HOSPITAL AT THIS TIME. WILL KEEP THEM UPDATED.
--- NOTE | 2021-05-02 00:35 | NUR ---
PT WITHOUT SPONTANEOUS RESPIRATIONS OR HEART BEAT. MARK HUANG/TRAIN BRAKEMAN NOTIFIED WELL MARIETTA PERRIN.
--- NOTE | 2021-05-02 01:53 | NUR ---
DAUGHTER DANNY DESIGNATES HOME IN [place].
--- NOTE | 2021-05-02 03:18 | NUR ---
PATIENT PICKED UP BY [facility] AT 0312. BELONGING TAKEN.
== END 2021-05-02 03:12 | disposition expired | DRG 602 ==
LOC: MEDICAL 21:19 → ICU 04-28 12:30 → SURG 05-01 14:38
PROVIDERS: Internal Medicine; Nurse Practitioner Family; Physician Assistant; Student in an Organized Health Care Education/Training Program; ADMIT Internal Medicine
PROC: 02HV33Z Insertion of Infusion Device into Superior Vena Cava, Percutaneous Approach (ICD-10-PCS; 2021-04-28)
PROC: 5A09357 Assistance with Respiratory Ventilation, Less than 24 Consecutive Hours, Continuous Positive Airway Pressure (ICD-10-PCS; principal; 2021-05-01)
DX: L03.116 Cellulitis of left lower limb (principal); J96.01 Acute respiratory failure with hypoxia; J96.02 Acute respiratory failure with hypercapnia; I48.20 Chronic atrial fibrillation, unspecified; E87.2 Acidosis; N17.9 Acute kidney failure, unspecified; R65.10 Systemic inflammatory response syndrome (SIRS) of non-infectious origin without acute organ dysfunction; N39.0 Urinary tract infection, site not specified; E87.3 Alkalosis; I87.2 Venous insufficiency (chronic) (peripheral); L03.115 Cellulitis of right lower limb; I10 Essential (primary) hypertension; I35.0 Nonrheumatic aortic (valve) stenosis; Z20.822 Contact with and (suspected) exposure to COVID-19; Z51.5 Encounter for palliative care; Z66 Do not resuscitate; I50.811 Acute right heart failure; I27.20 Pulmonary hypertension, unspecified; E03.9 Hypothyroidism, unspecified; R34 Anuria and oliguria; I34.0 Nonrheumatic mitral (valve) insufficiency; E83.42 Hypomagnesemia; D69.6 Thrombocytopenia, unspecified; R31.9 Hematuria, unspecified; M19.90 Unspecified osteoarthritis, unspecified site; E87.6 Hypokalemia; K21.9 Gastro-esophageal reflux disease without esophagitis; E80.6 Other disorders of bilirubin metabolism; E66.01 Morbid (severe) obesity due to excess calories; H91.90 Unspecified hearing loss, unspecified ear; Z96.653 Presence of artificial knee joint, bilateral; Z88.1 Allergy status to other antibiotic agents
CPT/HCPCS: 99232-AI; 99233-AI; 99238; C1751; J0696; J1644; J1940; J2060; J2260; J2270; J2405; J3370; J3475; J3480; J7050; P9047; Q9967